=== PATIENT | female | born 1990 | race Caucasian/White ===

== ENCOUNTER 2023-08-21 04:09 | Inpatient (IN) ==
[2023-08-21] MEDS ORDERED: Nalbuphine 10 MG/ML 1 ML VIAL IV PRN (05:18)
[2023-08-21] MEDS ORDERED: Buffered Lidocaine 1% SYRIN 1 ml INTRADERM ONE (05:18)
[2023-08-21] MEDS ORDERED: Lactated Ringers 1000 ml BAG 1,000 ML IV ONE (05:18)
[2023-08-21] MEDS ORDERED: Prochlorperazine 5 mg/ml 2 ml VIAL (10 mg) IV PRN (05:18)
[2023-08-21] MEDS ORDERED: Lidocaine 1% VIAL 10 MG/ML 30 ML VIAL INJ PRN (05:18)
[2023-08-21] MEDS ORDERED: Glycerin ADULT 2.4 gm SUPP PR PRN (05:40)
[2023-08-21] MEDS: Dibucaine 1% OINT 28.35 GM TUBE PR PRN (05:57)
[2023-08-21] MEDS: Witch Hazel PAD JAR TOPICAL PRN (05:57)
[2023-08-21] MEDS ORDERED: Lactated Ringers 1000 ml BAG 1,000 ML IV SCH ×2 (06:00)
[2023-08-21 15:57] LABS: Urine Appearance Clear; Urine Bilirubin Negative (Negative); Urine Blood 3+ (Negative); Urine Color Yellow; Urine Glucose Negative (Negative); Urine Ketones Negative (Negative); Urine Nitrite Negative (Negative); Urine Protein Trace (Negative); Urine Specific Gravity 1.027 (1.002-1.030); Urine Urobilinogen Negative (Negative)
[2023-08-21 16:02] LABS: Urine Bacteria Absent /HPF (Absent); Urine Red Blood Cell 3+(>10/hpf) /HPF (0-Trace); Urine Squamous Epithelial Cell Present /HPF (Absent); Urine White Blood Cell 2+(11-20/hpf) /HPF (0-Trace)
[2023-08-21] MEDS: RHO D Immune Globulin (HUMAN) 300 MCG = 1,500 I.U. INJ IM ONE (16:13)
[2023-08-22 06:31] LABS: Hematocrit 33.8 % (35-45); Hemoglobin 11.7 g/dL (11.5-14.3); Mean Corpuscular Hemoglobin 31.9 pg (27-33); Mean Corpuscular Hgb Conc 34.6 g/dL (31-36); Mean Corpuscular Volume 92.3 fL (80-97); Mean Platelet Volume 9.4 fL (7.5-11.2); Platelet Count 221 10^3/uL (150-450); Red Blood Count 3.66 10^6/uL (3.63-4.92); Red Cell Distribution Width 14.2 % (12-17); White Blood Count 14.8 10^3/uL (3.8-11.8)
[2023-08-22 07:40] LABS: ABS Basophils 0.1 10^3/uL (0.0-0.1); ABS Eosinophils 0.2 10^3/uL (0.0-0.5); ABS Lymphocytes 2.5 10^3/uL (1.0-4.8); ABS Monocytes 0.8 10^3/uL (0.0-0.9); ABS Neutrophils 11.3 10^3/uL (1.5-7.6); ABS Nucleated RBC 0.01 10^3/ul; Eosinophil % 1.3 %; Lymphocyte % 16.8 %; Nucleated Red Blood Cells % 0.1 %/100WBC (0.0-0.8)
[2023-08-22 08:51] VITALS: BP 114/75
== END 2023-08-22 14:19 | disposition home or self-care (01) | DRG 560 ==
LOC: MCHOBOUT 04:09 → MCHOB 05:05
PROVIDERS: ADMIT Advanced Practice Midwife; ATTEND Advanced Practice Midwife